=== PATIENT | male | born 1950 | race Hispanic/Latino ===

== ENCOUNTER 2017-03-25 09:11 | Observation (INO) | payer BC ==
[2017-03-25 09:57] LABS: Basophils % (Auto) 0.8 % (0.0-1.8); Mean Corpuscular HGB Conc 35 % (32-34); Mean Corpuscular Hemoglobin 33 pg (28-32); Mean Corpuscular Volume 94 fl (84-94); Platelet Count 153 K/mm3 (140-440); Red Blood Count 4.88 M/mm3 (3.65-5.03); Red Cell Distribution Width 12.8 % (13.2-15.2); White Blood Count 8.1 K/mm3 (4.5-11.0)
[2017-03-25] MEDS ORDERED: NACL 0.9% 500 ML 500 ML IV SCH (10:00)
[2017-03-25] MEDS ORDERED: ECOTRIN PO ONE (10:00)
[2017-03-25 10:11] LABS: Anion Gap 19 mmol/L; BUN/Creatinine Ratio 16; Blood Urea Nitrogen 14 mg/dL (9-20); Calcium 9.6 mg/dL (8.4-10.2); Carbon Dioxide 24 mmol/L (22-30); Glucose 134 mg/dL (75-100); Potassium 4.2 mmol/L (3.6-5.0); Sodium 140 mmol/L (137-145)
[2017-03-25 10:25] LABS: INR 1.02 (0.87-1.13)
[2017-03-25] MEDS ORDERED: HEPARIN/NS 5000 UNIT/500ML(CATH LAB) 1,000 ML IR ONE (10:47)
[2017-03-25] MEDS ORDERED: XYLOCAINE 2% INFILTRATI ONE (10:47)
[2017-03-25] MEDS ORDERED: CALAN ONE (10:47)
[2017-03-25] MEDS ORDERED: HEPARIN 10,000 UNITS/10 ML ONE (10:47)
[2017-03-25] MEDS ORDERED: VERSED ONE (10:47)
[2017-03-25] MEDS ORDERED: NITROGLYCERIN SYRINGE 3 ML ONE ×2 (10:47→11:55)
[2017-03-25] MEDS ORDERED: SUBLIMAZE ONE (10:48)
[2017-03-25] MEDS ORDERED: WATER FOR INJ (PF) 10 ML ONE (11:33)
[2017-03-25] MEDS ORDERED: ANGIOMAX IV ONE (11:33)
[2017-03-25] MEDS ORDERED: NACL 0.9% 50 ML ONE (11:34)
[2017-03-25] MEDS ORDERED: HEPARIN/NS 5000 UNIT/500ML(CATH LAB) 500 ML IR ONE (11:42)
[2017-03-25] MEDS ORDERED: AGGRASTAT DRIP (12.5 MG/250 ML) 12,500 MCG/250 ML BAG IV ONE (11:57)
[2017-03-25] MEDS ORDERED: ALUM-MAG HYDROX-SIMETH 200-200-20MG/5ML ONE (12:09)
[2017-03-25] MEDS ORDERED: EFFIENT PO ONE (12:09)
--- NOTE | 2017-03-25 13:04 | Short Stay Summary ---
Short Stay Documentation Date of service: 03/25/17 - History H&P: obtained from office - Allergies and Medications Current Medications: Allergies No Known Allergies Allergy (Verified 03/25/17 09:22) Home Medications Medication Instructions Recorded Confirmed Last Taken Type Allopurinol [Allopurinol] 100 mg PO DAILY 03/25/17 03/25/17 03/24/17 History Aspirin [Aspir-Low] 81 mg PO DAILY 03/25/17 03/25/17 03/24/17 History AtorvaSTATin [Lipitor] 20 mg PO QHS 03/25/17 03/25/17 03/24/17 History Lisinopril [Zestril TAB] 10 mg PO QDAY 03/25/17 03/25/17 03/24/17 History Mv-Min/Folic/Vit K/Lycop/Coq10 1 each PO DAILY 03/25/17 03/25/17 03/24/17 History [Daily Multivitamin Capsule] Norden-3/Dha/Epa/Fish Oil [Fish Oil 1 each PO DAILY 03/25/17 03/25/17 03/24/17 History 1,000 mg Softgel] Active Medications Aspirin (Aspirin) 325 mg PO QDAY MICHELLE Sodium Chloride (Nacl 0.9% 500 Ml) 500 mls @ 50 mls/hr IV DIRECT MICHELLE Stop: 03/25/17 19:59 Last Admin: 03/25/17 10:00 Dose: 50 mls/hr Metoprolol Tartrate (Lopressor) 12.5 mg PO BID MICHELLE Prasugrel (Effient) 10 mg PO QDAY MICHELLE - Brief post op/procedure progress note Date of procedure: 03/25/17 Pre-op diagnosis: chest pain Post-op diagnosis: other (CAD) Procedure: [facility] with PCI of RCA Anesthesia: local Condition: stable - Disposition Condition at discharge: Stable Disposition: DC-01 TO HOME OR SELFCARE - Discharge Diagnoses (1) Coronary artery disease Status: Chronic Qualifiers: Coronary Disease-Associated Artery/Lesion type: C [place] vs. transplanted heart: N Associated angina: A (2) Stented coronary artery Status: Chronic Short Stay Discharge Plan Activity: advance as tolerated Diet: low fat, low cholesterol, low salt Wound: open to air, keep clean and dry Follow up with: INES MONTEMAYOR MD [Staff Physician] - 7 Days (04/01/2017 @ 3:00PM) Prescriptions: AtorvaSTATin [Lipitor] 40 mg PO QHS #30 tablet Metoprolol [Lopressor TAB] 12.5 mg PO BID #60 tablet Prasugrel [Effient] 10 mg PO QDAY #30 tablet
--- NOTE | 2017-03-25 13:42 | Cardiac Catherization Report ---
REFERRING PHYSICIAN: Dr. Grace Abarca. INDICATION FOR PROCEDURE: The patient is a pleasant 66-year-old gentleman who was referred for left heart catheterization by Dr. Silvestre Abarca for episodes for chest pain, dyspnea, abnormal nuclear stress test, abnormal treadmill stress test. His nuclear stress test shows a significant inferior ischemic defect. The patient is on aspirin, statin, MUNDO. At this point, he is referred for left heart catheterization. Risks, benefits, and potential alternatives were explained at length prior to obtaining informed consent. PROCEDURE IN DETAIL: The patient was brought to catheter finisher and inspector in a postabsorptive state, prepped and draped in sterile fashion. Dominik's test in right hand was normal. A 2 mL of 2% lidocaine used to anesthetize the right wrist. A standard 6-Irish hydrophilic sheath used to cannulate the right radial artery via modified Seldinger technique. All exchanges performed to exchange a J-tip guidewire. A JL3.5 catheter used to engage left main. No dampening or ventricularization. Cineangiography performed in all projections. A JR4 catheter was used to cross the aortic valve under fluoroscopic guidance. Left ventriculography performed in 30 ORTA and 30 BENINESE projection via hand injections. Catheter flushed. Manual pullback performed with continuous pressure monitoring. Catheter used to engage the right coronary. No dampening or ventricularization. Cineangiography performed in all projections. Next, catheter removed from the body. DATA: LV pressure of 130, LVEDP of 8 mmHg, aortic pressure 130/90. With injection of the right coronary, the patient developed chest pain and EKG changes. CORONARY ANATOMY: The right coronary reveals a 95% stenosis in the distal portion of the mid right coronary. The left main is without significant disease. LAD is a large vessel, courses anterior intergroove, wraps around the apex, no significant disease. Left circumflex is a moderate sized vessel, courses AV groove. No significant disease. This is a right dominant system. At this point, given this patient's active chest pain and dynamic ST changes with the right coronary injection, and 95% stenosis I will procedure with PCI, also the patient with inferior ischemia on stress test. Angiomax was given. Abnormal ACT confirmed. The patient was loaded with aspirin. A JR4 guide with sideholes was used to engage the artery without difficulty or dampening. We used a 2.5 x 12 balloon to predilate the lesion. Next, I used a 2.75 x 18 Resolute Integrity drug-eluting stent. Good angiographic result, diffuse spasm, multiple durations of intracoronary nitroglycerin are given, which improved his symptoms, chest pain resolved. Intravascular ultrasound was performed, which revealed the vessel as well opposed and well expanded throughout. No evidence of dissection or significant disease in the remainder of the right coronary. CONCLUSIONS: 1. Severe single-vessel coronary artery disease, 95% mid right coronary with chest pain and ST changes after initial injection. This correlates with the inferior ischemia on stress test. Given active chest pain and inferior ischemia and a 95% mid right coronary, I decided to proceed with PCI. A successful IVUS guided PCI of mid right coronary and placement of a drug-eluting stent (Resolute 2.75 x 18) with excellent final angiographic and ultrasonographic result. 2. No significant disease in the left system. 3. Normal left ventricular function. 4. No evidence of aortic stenosis. The patient is clinically stable, chest pain free, right now; aspirin, Effient and statin therapy; risk factor modification. Results of procedure were explained to the patient and family. All questions and concerns were addressed. The patient will be monitored overnight, standard radial care. Follow up with Dr. Grace Abarca in the office. JOB# [id number] MEIR/CYNDI
[2017-03-25] MEDS: LOPRESSOR PO SCH (21:19)
[2017-03-26 04:58] LABS: Basophils % (Auto) 0.7 % (0.0-1.8); Eosinophils % (Auto) 4.1 % (0.0-4.3); Hematocrit 42.7 % (35.5-45.6); Hemoglobin 14.8 gm/dl (11.8-15.2); Mean Corpuscular HGB Conc 35 % (32-34); Mean Corpuscular Hemoglobin 33 pg (28-32); Mean Corpuscular Volume 96 fl (84-94); Platelet Count 146 K/mm3 (140-440); Red Blood Count 4.47 M/mm3 (3.65-5.03); Red Cell Distribution Width 12.9 % (13.2-15.2); White Blood Count 8.5 K/mm3 (4.5-11.0)
[2017-03-26 05:17] LABS: Anion Gap 19 mmol/L; BUN/Creatinine Ratio 15; Blood Urea Nitrogen 15 mg/dL (9-20); Carbon Dioxide 25 mmol/L (22-30); Chloride 101.1 mmol/L (98-107); Glucose 119 mg/dL (75-100); Potassium 4.1 mmol/L (3.6-5.0); Sodium 141 mmol/L (137-145)
[2017-03-26 08:37] VITALS: BP 126/77
--- NOTE | 2017-03-26 09:30 | XRay Report ---
AP CHEST :03/26/17 CLINICAL: Post PCI COMPARISON:None. FINDINGS: Normal heart and pulmonary vasculature. The lungs are normally expanded and clear. The bones and soft tissues are normal. IMPRESSION: Normal chest.
[2017-03-26] MEDS ORDERED: ZESTRIL PO SCH (10:00)
[2017-03-26] MEDS ORDERED: ZYLOPRIM PO SCH (10:00)
[2017-03-26] MEDS ORDERED: ASPIRIN PO SCH (10:00)
[2017-03-26] MEDS: LOPRESSOR PO SCH (10:44)
[2017-03-26] MEDS ORDERED: EFFIENT PO SCH (12:54)
== END 2017-03-26 11:59 | disposition home or self-care (01) ==
LOC: CATHLABREC 09:11 → 4A 12:54
PROVIDERS: ADMIT Internal Medicine; ATTEND Internal Medicine
DX: I25.10 Atherosclerotic heart disease of native coronary artery without angina pectoris (principal); R94.39 Abnormal result of other cardiovascular function study; R06.00 Dyspnea, unspecified; I25.9 Chronic ischemic heart disease, unspecified; I10 Essential (primary) hypertension; Z87.891 Personal history of nicotine dependence; Z82.49 Family history of ischemic heart disease and other diseases of the circulatory system
CPT/HCPCS: 36415; 71010; 80048; 85025; 85347; 85610; 85730; 92978; 93005; 93010; 93458; A9270; C1725; C1753; C1769; C1874; C1887; C1894; C9600; G0378; J0583; J1644; J2250; J3010; J3246; J7040; 92928; Q9967